=== PATIENT | female | born 1995 | race Caucasian/White ===

== ENCOUNTER 2018-12-09 17:28 | Outpatient (CLI) | payer MEDICAID ==
[~2018-12-09] VITALS: Ht 165.1 cm; Wt 99.8 kg
--- NOTE | 2018-12-09 17:10 | NUR ---
MIRYAM MATAMOROS presented to unit via AMBULTION from ED, accompanied by S/O, with c/o PRESSURE. MIRYAM MATAMOROS weighed, gowned, voided, and to bed. EFHM and TOCO applied, VS taken. MIRYAM MATAMOROS oriented to bed controls, call light, TV, heat, and A/C controls.
--- NOTE | 2018-12-09 17:20 | NUR ---
INITIAL ASSESSMENT COMPLETED, VSS, NO DISTRESS NOTED, PLAN OF CARE EXPLAINED WITH PT, PT VERBALIZES UNDERSTANDING. SEE INTERVENTIONS FOR DETAILED ASSESSMENT. PT REPORTS LOWER ABDOMINAL PRESSURE YESTERDAY WHICH HAS GOTTEN BETTER WITH TIME BUT STILL HERE. DENIES CONTRACTIONS, LEAKING FLUID, DECREASED MOVEMENT, BLEEDING OR RECENT INTERCOURSE.
[2018-12-09 18:03] LABS: BILIRUBIN,URINE NEGATIVE (NEGATIVE); COLOR,URINE YELLOW; GLUCOSE, URINE (UA) NEGATIVE (NEGATIVE); KETONES,URINE 3+ (NEGATIVE); LEUKOCYTE ESTERASE ,URINE 3+ (NEGATIVE); NITRITE,URINE NEGATIVE (NEGATIVE); PH,URINE 6 (5-9); PROTEIN,URINE 1+ (NEGATIVE); UROBILINOGEN,URINE NORMAL (NORMAL)
[2018-12-09] MEDS ORDERED: PREN1TAB79 PO (18:07)
[2018-12-09 18:08] LABS: CLARITY,URINE SL CLOUDY
[2018-12-09 18:09] LABS: BACTERIA,URINE MODERATE /HPF; RBC,URINE RARE /HPF
--- NOTE | 2018-12-09 18:50 | NUR ---
FHTS 130, MOD VARIABILITY, +ACCLS, +FM, X 1 CONTRACTION NOTED, 90 SECONDS IN DURATION, MILD TO PALPATION.
--- NOTE | 2018-12-09 19:00 | NUR ---
DR CONN CALLED, NEW ORDERS RECEIVED.
[2018-12-09] MEDS ORDERED: NITR-65 PO (19:08)
--- NOTE | 2018-12-09 19:30 | NUR ---
PRESCRIPTION CALLED TO [facility].
--- NOTE | 2018-12-09 19:32 | NUR ---
DISCHARGE INSTRUCTIONS EXPLAINED AND SIGNED BY PT, PT VERBALIZES UNDERSTANDING, DISCHARGED TO HOME, AMBULATED TO PRIVATE CAR WITH S/O AT SIDE.
== END 2018-12-09 19:32 | disposition home or self-care (01) ==
LOC: WSo 17:28 → LDRP 17:30 → WSo 19:32
PROVIDERS: ATTEND Family Medicine
DX: O99.89 Other specified diseases and conditions complicating pregnancy, childbirth and the puerperium (principal); R10.2 Pelvic and perineal pain; Z3A.32 32 weeks gestation of pregnancy
CPT/HCPCS: 81000; 87088; 99213

== ENCOUNTER 2019-01-10 13:05 | Inpatient (IN) | payer MEDICAID ==
[~2019-01-10] VITALS: Ht 165.1 cm; Wt 99.8 kg
[2019-01-10] VITALS (18 sets, daily range): BP systolic 117–136; BP diastolic 58–92
--- NOTE | 2019-01-10 13:00 | NUR ---
Arrived to unit for augmentation of labor. Sent from Dr Arce's office. Wt obtained and to room 318. Gowned and urine sample obtained. To bed and oriented to room, call light, surroundings and ordering process. monitors on. pt reports movement. plan of care reviewed with pt and family at bedside.
[~2019-01-10 13:05] MED LIST: NITR-65 PO; PREN1TAB79 PO
--- OUTSIDE RECORDS SUMMARY | 2019-01-10 13:08 | XMS REPORT | Continuity of Care Document ---
Demographics x Preferred Language Unknown Marital Status Unknown Confucianist Affiliation Unknown Race Unknown Ethnic Group Unknown Author Organization Unknown Address Unknown Allergies Active Description Code Type Severity Reaction Onset Reported/Identified Relationship to Patient Clinical Status Yes No Known Drug Allergies [id number] Drug Allergy Unknown N/A 12/09/2018 Medications There is no data. Problems Date Dx Coded Attending Type Code Diagnosis Diagnosed By 12/09/2018 SKY CONN MD, Ot O99.89 OT DISEASES AND CONDITIONS COMPL PREG/C 12/09/2018 SKY CONN MD Ot R10.2 PELVIC AND PERINEAL PAIN 12/09/2018 SKY CONN MD Ot Z3A.32 32 WEEKS GESTATION OF 12/11/2018 SKY CONN MD, Ot O99.89 OT DISEASES AND CONDITIONS COMPL PREG/C 12/11/2018 SKY CONN MD Ot R10.2 PELVIC AND PERINEAL PAIN 12/11/2018 SKY CONN MD Ot Z3A.32 32 WEEKS GESTATION OF Procedures There is no data. Results Test Result Range GLUCOSE ABDIEL 1 HOUR - 11/08/18 11:37 GLUCOSE, POSTPRANDIAL/ 1 HOUR 93 mg/dL See Note: CBC - 11/08/18 11:37 WHITE BLOOD CELL COUNT 9.9 Thousand/uL 3.8-10.8 RED BLOOD CELL COUNT 4.08 Million/uL 3.80-5.10 HEMOGLOBIN 11.4 g/dL 11.7-15.5 HEMATOCRIT 35.0 % 35.0-45.0 MCV 85.8 fL 80.0-100.0 MCH 27.9 pg 27.0-33.0 MCHC 32.6 g/dL 32.0-36.0 RDW 13.0 % 11.0-15.0 PLATELET COUNT 270 Thousand/uL 140-400 MPV 8.9 fL 7.5-12.5 ABSOLUTE NEUTROPHILS 7148 cells/uL 9569-6237 ABSOLUTE LYMPHOCYTES 2079 cells/uL 850-3900 ABSOLUTE MONOCYTES 584 cells/uL 200-950 ABSOLUTE EOSINOPHILS 59 cells/uL 15-500 ABSOLUTE BASOPHILS 30 cells/uL 0-200 NEUTROPHILS 72.2 % NRG LYMPHOCYTES 21.0 % NRG MONOCYTES 5.9 % NRG EOSINOPHILS 0.6 % NRG BASOPHILS 0.3 % NRG Complete urinalysis with reflex to culture - 12/09/18 17:35 Urine color determination YELLOW NRG Urine clarity determination SL CLOUDY NRG Urine pH measurement by test strip 6 5-9 Specific gravity of urine by test strip 1.020 1.016-1.022 Urine protein assay by test strip, semi-quantitative 1+ NEGATIVE Urine glucose detection by automated test strip NEGATIVE NEGATIVE Erythrocytes detection in urine sediment by light microscopy 1+ NEGATIVE Urine ketones detection by automated test strip 3+ NEGATIVE Urine nitrite detection by test strip NEGATIVE NEGATIVE Urine total bilirubin detection by test strip NEGATIVE NEGATIVE Urine urobilinogen measurement by automated test strip (mass/volume) NORMAL NORMAL Urine leukocyte esterase detection by dipstick 3+ NEGATIVE Automated urine sediment erythrocyte count by microscopy (number/high power field) RARE NRG Automated urine sediment leukocyte count by microscopy (number/high power field) [HPF] NRG Bacteria detection in urine sediment by light microscopy MODERATE NRG Squamous epithelial cells detection in urine sediment by light microscopy 5-10 NRG Crystals detection in urine sediment by light microscopy NONE NRG Casts detection in urine sediment by light microscopy NONE NRG Mucus detection in urine sediment by light microscopy MODERATE NRG Complete urinalysis with reflex to culture CULTURE PENDING NRG Bacterial urine culture - 12/09/18 17:35 Bacterial urine culture NG NRG CULTURE, GROUP B STREP WITH SUSCEPTIBILITY - 12/28/18 10:19 CULTURE, GROUP B STREP WITH SUSCEPTIBILITY SEE NOTE NRG Encounters ACCT No. Visit Date/Time Discharge Status Pt. Type Provider Facility Loc./Unit Complaint [id number] 01/03/2019 10:15:00 01/03/2019 23:59:59 [facility] [id number] 12/28/2018 09:30:00 Document Registration [id number] 11/08/2018 10:30:00 Document Registration [id number] 12/09/2018 17:28:00 12/09/2018 19:32:00 DIS Outpatient SKY CONN MD [facility] PRESSURE
[2019-01-10] MEDS ORDERED: D5 LR IV SOLUTION 1,000 ML IV SCH (13:13)
[2019-01-10] MEDS ORDERED: OXYTOCIN/NORMAL SALINE 500 ML IV SCH ×2 (13:13→20:09)
[2019-01-10 13:52] LABS: BASOPHILS % (AUTO) 0 % (0-10); EOSINOPHILS % (AUTO) 0 % (0-10); HEMATOCRIT 33 % (35-52); HEMOGLOBIN 10.7 G/DL (11.5-16.0); LYMPHOCYTES # (AUTO) 2.1 X 10^3 (1.0-4.0); LYMPHOCYTES % (AUTO) 22 % (12-44); MEAN CORPUSCULAR HEMOGLOBIN 26 PG (25-34); MEAN CORPUSCULAR HGB CONC 32 G/DL (32-36); MEAN CORPUSCULAR VOLUME 82 FL (80-99); MEAN PLATELET VOLUME 9.1 FL (7.4-10.4); MONOCYTES # (AUTO) 0.9 X 10^3 (0.0-1.0); MONOCYTES % (AUTO) 10 % (0-12); NEUTROPHILS # (AUTO) 6.5 X 10^3 (1.8-7.8); NEUTROPHILS % (AUTO) 69 % (42-75); PLATELET COUNT 270 10^3/uL (130-400); RED CELL DISTRIBUTION WIDTH 13.4 % (10.0-14.5); WHITE BLOOD COUNT 9.5 10^3/uL (4.3-11.0)
[2019-01-10] MEDS ORDERED: CATHETER FLUSH 10 ML SYR IV SCH ×2 (14:00→22:00)
--- NOTE | 2019-01-10 16:47 | History & Physical-OB ---
OB - Chief Complaint & HPI Date/Time Date of Admission: Date of Admission: Jan 10, 2019 at 13:05 Date seen by a Provider: Jan 10, 2019 Time Seen by a Provider: 16:45 Chief Complaint/History OB-Reason for Admission/Chief: Onset of Labor Hx : 2 Hx Para: 1 Expected Date of Delivery: Jan 30, 2019 Gestational Age in Weeks: 37 Gestational Age in Days: 1 Indication for induction: maternal discomfort Other reason for admission: advanced dilation Admission Nurse Assessment Rev: Yes Allergies and Home Medications Allergies Coded Allergies: No Known Drug Allergies (Unverified , 12/09/18) Home Medications Nitrofurantoin Monohyd/M-Cryst 100 Mg Capsule, 1 TAB PO BID Prescribed by: NORMA MORA on 12/09/18 190 Vit W-Ca,Fe,FA(<1 mg) 1 Each Tablet, 1 TAB PO DAILY, (Reported) Patient Home Medication List Home Medication List Reviewed: Yes OB - History Hx of Present Care: Yes Ultrasounds: Normal mid trimester US Obstetrical Complications: None Medical Complications: None Delivery History Adverse Rxn to Tranfusion: No Patient Past Medical History previously healthy Social History/Family History HIV/AIDS: No Sexually Transmitted Disease: No Alcohol Use: Denies Use Recreational Drug Use: No Immunizations Hepatitis A: Yes Hepatitis B: Yes OB - Admission Exam Physical Exam Vitals: Vital Signs 01/10/19 01/10/19 01/10/19 14:30 16:00 16:15 Temp 98.2 Pulse 101 Resp 18 B/P (MAP) 125/83 (97) Pulse Ox 99 O2 Delivery Room Air HEENT: NCAT Heart: Rhythm Normal Lungs: Clear Abdomen: Gravid Extremities: Normal Reflexes: Normal Cervical Dilatation: 5cm Effacement: 50% Station: -2 Membranes: Ruptured Amniotic Fluid: Clear Heart Rate: 130's Accelerations: Accelerations Present Decelerations: No Decelerations Short Term Variability: Present Penitentiary Variability: Average (6-25) Contractions on Admission: < 5 Minutes Apart Intensity: Moderate Labs Laboratory Tests Test 01/10/19 13:35 Range/Units White Blood Count 9.5 4.3-11.0 10^3/uL Red Blood Count 4.09 L 4.35-5.85 10^6/uL Hemoglobin 10.7 L 11.5-16.0 G/DL Hematocrit 33 L 35-52 % Mean Corpuscular Volume 82 80-99 FL Mean Corpuscular Hemoglobin 26 25-34 PG Mean Corpuscular Hemoglobin Concent 32 32-36 G/DL Red Cell Distribution Width 13.4 10.0-14.5 % Platelet Count 270 130-400 10^3/uL Mean Platelet Volume 9.1 7.4-10.4 FL Neutrophils (%) (Auto) 69 42-75 % Lymphocytes (%) (Auto) 22 12-44 % Monocytes (%) (Auto) 10 0-12 % Eosinophils (%) (Auto) 0 0-10 % Basophils (%) (Auto) 0 0-10 % Neutrophils # (Auto) 6.5 1.8-7.8 X 10^3 Lymphocytes # (Auto) 2.1 1.0-4.0 X 10^3 Monocytes # (Auto) 0.9 0.0-1.0 X 10^3 Eosinophils # (Auto) 0.0 0.0-0.3 10^3/uL Basophils # (Auto) 0.0 0.0-0.1 10^3/uL OB - Assessment/Plan/Diagnosis Assessment Assessment: active labor Admission Dx Normal labor at 37 1/7 wga. Admission Status: Inpatient Order (span 2 midnights) Reason for Inpatient Admission: Normal labor at 37 1/7 wga Plan Induction Method: AROM Other Plan augmentation with pitocin. CALE LAUREANO MD Jan 10, 2019 16:47
--- NOTE | 2019-01-10 17:51 | NUR ---
Report to Rosamaria Presley RN
--- NOTE | 2019-01-10 18:46 | OB Labor & Delivery Record ---
Vag Delivery Note Vag Delivery Note Date of Delivery: 01/10/19 Preoperative Diagnosis: Destiney Zaldivar is a (23 /Para 2 / 1,Gestational Age (wks)37with [] Postoperative Diagnosis: Same Surgeon: CALE LAUREANO Grinder Setup Operator: [] Anesthesia: [none] Delivery Type: [] Findings: [] Viable [male] , apgars [8/9] Lacerations: none Intact placenta with 3 vessel cord. Loose nuchal cord, no body cord or shoulder dystocia Estimated Blood Loss: [300] ml Complications: None Condition: Stable Description of Procedure: The patient is a 23 year old female who presented [in labor]. She was admitted and informed consent was obtained. Her labor course was remarkable for [augmentation] She progressed to complete dilatation and began to push. She was then set up for delivery. The infant's head was delivered atraumatically in the [OA] position. The shoulders and remainder of the 's body were then delivered without difficulty. Upon delivery, the head was held below the level of the perineum and the mouth and nares were bulb suctioned. The cord was doubly clamped and cut after 60 seconds and was placed on maternal abdomen. An intact placenta with 3-vessel cord delivered via Álvaro and there was found to be minimal bleeding.~ Vigorous fundal massage was performed and the fundus was found to be firm. IV oxytocin was given. Examination of the vagina and perineum revealed no lacerations. Following the repair, sponge, instrument and needle counts were correct. Mom and baby were both in stable condition in the labor suite. Vitals - Labs Vital Signs - I&O Vital Signs Date Time Temp Pulse Resp B/P (MAP) Pulse Ox O2 Delivery O2 Flow Rate FiO2 01/10/19 17:00 116 18 120/58 (78) Room Air 01/10/19 16:45 103 18 135/83 (100) Room Air 01/10/19 16:30 88 18 131/82 (98) Room Air 01/10/19 16:15 101 18 125/83 (97) Room Air 01/10/19 16:00 98.2 122 18 126/92 (103) Room Air 01/10/19 15:45 125 18 122/68 (86) Room Air 01/10/19 15:30 113 18 126/78 (94) Room Air 01/10/19 15:15 116 18 136/74 (94) Room Air 01/10/19 15:00 Room Air 01/10/19 14:45 98.1 Room Air 01/10/19 14:30 101 18 124/79 (94) 99 Room Air 01/10/19 14:15 105 18 126/79 (95) 99 Room Air 01/10/19 14:00 103 18 122/75 (91) 99 Room Air 01/10/19 13:45 93 18 124/71 (88) 98 Room Air Labs Laboratory Tests 01/10/19 13:35: White Blood Count 9.5, Red Blood Count 4.09L, Hemoglobin 10.7L, Hematocrit 33L, Mean Corpuscular Volume 82, Mean Corpuscular Hemoglobin 26, Mean Corpuscular Hemoglobin Concent 32, Red Cell Distribution Width 13.4, Platelet Count 270, Mean Platelet Volume 9.1, Neutrophils (%) (Auto) 69, Lymphocytes (%) (Auto) 22, Monocytes (%) (Auto) 10, Eosinophils (%) (Auto) 0, Basophils (%) (Auto) 0, Neutrophils # (Auto) 6.5, Lymphocytes # (Auto) 2.1, Monocytes # (Auto) 0.9, Eosinophils # (Auto) 0.0, Basophils # (Auto) 0.0 CALE LAUREANO MD Jan 10, 2019 18:46
[2019-01-10] MEDS ORDERED: BENZOCAINE/MENTHOL (DERMOPLAST) 56 ML CAN TP ONE (18:48)
[2019-01-10] MEDS ORDERED: IBUPROFEN 600 MG (MOTRIN) TAB PO ONE (20:04)
[2019-01-10] MEDS: IBUPROFEN 600 MG (MOTRIN) TAB PO SCH (20:11)
[2019-01-10] MEDS ORDERED: BENZOCAINE/MENTHOL (DERMOPLAST) 56 ML CAN TP PRN (20:15)
[2019-01-10] MEDS ORDERED: WITCH HAZEL(TUCKS) 40 EA JAR TOP PRN (20:15)
[2019-01-10] MEDS ORDERED: TETANUS,DIPTH,PERTUSS P/F (BOOSTRIX) 0.5 ML VIAL IM ONE (20:15)
[2019-01-10] MEDS ORDERED: MEASLES,MUMPS,RUBELLA 1 EA INJ SQ ONE (20:15)
[2019-01-10] MEDS ORDERED: IBUPROFEN 600 MG (MOTRIN) TAB PO SCH (21:00)
[2019-01-11 00:05] VITALS: BP 100/65
[2019-01-11] MEDS: IBUPROFEN 600 MG (MOTRIN) TAB PO SCH ×4 (02:22→21:17)
[2019-01-11 04:54] VITALS: BP 118/82
[2019-01-11] MEDS: ACETAMINOPHEN 500 MG TAB (TYLENOL) PO SCH ×2 (04:54→14:45)
[2019-01-11 05:58] LABS: BASOPHILS % (AUTO) 0 % (0-10); EOSINOPHILS % (AUTO) 0 % (0-10); HEMATOCRIT 30 % (35-52); HEMOGLOBIN 9.5 G/DL (11.5-16.0); LYMPHOCYTES # (AUTO) 2.5 X 10^3 (1.0-4.0); LYMPHOCYTES % (AUTO) 25 % (12-44); MEAN CORPUSCULAR HEMOGLOBIN 27 PG (25-34); MEAN CORPUSCULAR HGB CONC 32 G/DL (32-36); MEAN CORPUSCULAR VOLUME 83 FL (80-99); MEAN PLATELET VOLUME 8.9 FL (7.4-10.4); MONOCYTES # (AUTO) 0.9 X 10^3 (0.0-1.0); MONOCYTES % (AUTO) 9 % (0-12); NEUTROPHILS # (AUTO) 6.7 X 10^3 (1.8-7.8); NEUTROPHILS % (AUTO) 66 % (42-75); PLATELET COUNT 240 10^3/uL (130-400); RED CELL DISTRIBUTION WIDTH 13.6 % (10.0-14.5); WHITE BLOOD COUNT 10.2 10^3/uL (4.3-11.0)
--- NOTE | 2019-01-11 08:15 | NUR ---
THIS RN TO BEDSIDE, PT IN BED WITH S/O AND INFANT. VS OBTAINED. MEDS GIVEN; SEE EMAR FOR FURTHER. INITIAL SHIFT ASSESSMENT COMPLETED; SEE INTERVENTION. FRESH ICE WATER PROVIDED. BREAKFAST TRAY REMOVED. NO NEEDS VOICED, CALL LIGHT WITHIN REACH. Addendum: 01/11/19 at 0858 by ROSEMARY HAYS RN TIME SHOULD BE 0840.
[2019-01-11 08:37] VITALS: BP 109/62
[2019-01-11] MEDS: DOCUSATE SODIUM 100 MG (COLACE) CAP PO SCH ×2 (08:39→21:17)
--- NOTE | 2019-01-11 11:10 | NUR ---
PT IN BED, HOLDING SKIN TO SKIN. S/O AT THE BEDSIDE. NO NEEDS VOICED.
[2019-01-11 13:02] VITALS: BP 116/75
--- NOTE | 2019-01-11 13:02 | NUR ---
PT UP IN ROOM UPON ENTERING ROOM. PT TO BED. VS OBTAINED. S/O AT THE BEDSIDE. NO NEEDS VOICED.
--- NOTE | 2019-01-11 14:50 | NUR ---
THIS RN TO BEDSIDE, PT WITH ASSISTANCE FROM Khang CHASE, NURSERY RN. MEDS GIVEN PO; SEE EMAR FOR FURTHER. PT VOICES THAT SHE RECEIVED THE TDAP VACCINE IN THE CLINIC. NO NEEDS VOICED.
--- NOTE | 2019-01-11 16:17 | Postpartum Progress Note ---
Note Note Day # 1 Subjective: Patient is without complaints. Ambulating, voiding. Tolerating a regular diet without nausea or vomiting. Normal lochia. Pain is well controlled with oral pain medications. Breast feeding. Objective: Physical Exam: General - Alert and oriented, no apparent distress Abdomen - Soft, appropriately tender to palpation, non-distended, fundus firm at umbilicus Extremities - no edema, negative Toro's bilaterally Assessment: 23 yo G2 now P2 post- day # 1, status with delivery of term male Recovering well, hemodynamically stable Plan: Routine care. Encourage breast feeding. Encourage ambulation. Ferrous sulfate supplementation. f/u Dr Arce 6 weeks Plan for home tomorrow Vitals - Labs Vital Signs - I&O Vital Signs Date Time Temp Pulse Resp B/P (MAP) Pulse Ox O2 Delivery O2 Flow Rate FiO2 01/11/19 13:02 97.3 60 18 116/75 (89) 98 Room Air 01/11/19 08:37 97.7 82 18 109/62 (78) 98 Room Air 01/11/19 04:54 98.5 80 20 118/82 (94) 97 Room Air 01/11/19 00:05 98.8 83 20 100/65 (77) 98 Room Air 01/10/19 19:55 93 20 117/71 (86) Room Air 01/10/19 19:46 84 20 118/72 (87) Room Air 01/10/19 19:31 95 20 120/72 (88) Room Air 01/10/19 19:16 84 20 118/75 (89) Room Air 01/10/19 19:01 96 20 123/82 (96) Room Air 01/10/19 18:46 98.3 100 20 118/81 (93) Room Air 01/10/19 17:00 116 18 120/58 (78) Room Air 01/10/19 16:45 103 18 135/83 (100) Room Air 01/10/19 16:30 88 18 131/82 (98) Room Air 01/10/19 16:15 101 18 125/83 (97) Room Air I & O 01/11/19 07:00 Intake Total 1150 ml Balance 1150 ml Labs Laboratory Tests 01/11/19 05:47: White Blood Count 10.2, Red Blood Count 3.58L, Hemoglobin 9.5L, Hematocrit 30L, Mean Corpuscular Volume 83, Mean Corpuscular Hemoglobin 27, Mean Corpuscular Hemoglobin Concent 32, Red Cell Distribution Width 13.6, Platelet Count 240, Mean Platelet Volume 8.9, Neutrophils (%) (Auto) 66, Lymphocytes (%) (Auto) 25, Monocytes (%) (Auto) 9, Eosinophils (%) (Auto) 0, Basophils (%) (Auto) 0, Neutrophils # (Auto) 6.7, Lymphocytes # (Auto) 2.5, Monocytes # (Auto) 0.9, Eosinophils # (Auto) 0.0, Basophils # (Auto) 0.0 SKY CONN MD Jan 11, 2019 16:17
--- NOTE | 2019-01-11 17:33 | NUR ---
THIS RN TO BEDSIDE TO OBTAIN VS, PT . WILL RETURN AT A LATER TIME. NO NEEDS VOICED.
[2019-01-11 18:00] VITALS: BP 109/62
[2019-01-11 21:10] VITALS: BP 112/68
[2019-01-12] MEDS: ACETAMINOPHEN 500 MG TAB (TYLENOL) PO SCH ×2 (01:04→09:06)
[2019-01-12 03:07] VITALS: BP 115/62
[2019-01-12] MEDS: IBUPROFEN 600 MG (MOTRIN) TAB PO SCH ×2 (03:07→09:06)
--- NOTE | 2019-01-12 08:27 | Discharge Summary ---
Diagnosis/Chief Complaint Date of Admission Jan 10, 2019 at 13:05 Date of Discharge January 12, 2019 Admission Diagnosis Admission Diagnosis 1. Intrauterine at 37 weeks gestation 2. Low amniotic fluid index Discharge Diagnosis 1. Intrauterine at 37 weeks gestation 2. Low amniotic fluid index Chief Complaint/HPI Chief Complaint/HPI 23-year-old 2 now term 2 who initially it was admitted on January 10, 2019 after noting low NABILA. She received her care through Dr. Arce. She was brought in the morning of January 10 for induction of labor. Discharge Summary-OBS Procedures 1. Spontaneous vaginal delivery Discharge Physical Examination Allergies: Coded Allergies: No Known Drug Allergies (Unverified , 12/09/18) Vitals & I&Os Vital Sign - Last 12Hours Date Time Temp Pulse Resp B/P (MAP) Pulse Ox O2 Delivery O2 Flow Rate FiO2 01/12/19 03:07 98.4 68 18 115/62 (79) 98 Room Air General Appearance: No Acute Distress Cardiovascular: No Murmurs Abdominal: Soft (With uterus firm) Hospital Course Patient following delivery underwent routine care orders. She had no complications during the remainder of hospital stay. Her hemoglobin on January 11 was noted to be 9.5 with a comparison of 10.7 on admission. She was ambulatory and without any shortness of breath or leg pain. In the morning of January 12, 2019 she was eager for dismissal. She voiced no complaints and all questions answered. She will follow up with Dr. Arce in 6 weeks. Discharge Instructions to patient/family Please see electronic discharge instructions given to patient. Discharge Medications Reviewed and agree with Discharge Medication list on patient's Discharge Instruction sheet Clinical Quality Measures DVT/VTE Risk/Contraindication: Risk Factor Score Per Nursin RFS Level Per Nursing on Admit: 1=Low/No VTE PPX PAXTON VALVERDE MD Jan 12, 2019 08:27
--- NOTE | 2019-01-12 08:29 | Discharge Inst-Women's Service ---
Discharge Inst-Women's Serv Depart Medication/Instructions New, Converted or Re-Newed RX: Other Instructions You may take 200 mg ibuprofen 2 or 3 tablets every 6 hours as needed for cramping. Consults/Follow Up Additional Follow Up: Yes (With Dr. Arce in 6 weeks) Activity Driving Instructions: No Driving for 1 Week Nothing Inside Vagina: No [place] (For 6 weeks) Diet Discharge Diet: Regular Diet Return to The Hospital For: As below Symptoms to Report to : Bleeding Excessive, Fever Over 101 Degrees F, Vaginal Bleeding Increase, Vaginal Discharge Foul For Any Problems or Questions: Contact Your Physician PAXTON VALVERDE MD Jan 12, 2019 08:29
[2019-01-12 08:30] VITALS: BP 118/72
--- NOTE | 2019-01-12 08:30 | NUR ---
A.M. ASSESSMENT COMPLETED. VSS. ANXIOUS TO GO HOME TODAY.
[2019-01-12] MEDS: DOCUSATE SODIUM 100 MG (COLACE) CAP PO SCH (09:06)
--- NOTE | 2019-01-12 10:00 | NUR ---
CARING FOR INFANT IN ROOM. WELL.
--- NOTE | 2019-01-12 11:40 | NUR ---
DISCHARGE INSTRUCTIONS REVIEWED WITH COPY TO PT. STATES UNDERSTANDING OF ALL INSTRUCTIONS AND NEED TO F/U SCHEDULED AND NEEDED.
[2019-01-12 13:05] VITALS: BP 118/72
--- NOTE | 2019-01-12 13:05 | NUR ---
DISMISSED AMB WITH FROM [facility] IN STABLE CONDITION TO [facility] BY JORDON PEREZ.
== END 2019-01-12 13:05 | disposition home or self-care (01) | DRG 807 ==
LOC: LDRP 13:05
PROVIDERS: ADMIT Family Medicine; ATTEND Family Medicine
PROC: 10E0XZZ Delivery of Products of Conception, External Approach (ICD-10-PCS; principal; 2019-01-10)
DX: O41.03X0 Oligohydramnios, third trimester, not applicable or unspecified (principal); O69.81X0 Labor and delivery complicated by cord around neck, without compression, not applicable or unspecified; Z3A.37 37 weeks gestation of pregnancy; Z37.0 Single live birth
CPT/HCPCS: 36415; 85025; 86850; 86900; 86901

== ENCOUNTER → 2019-12-05 | Outpatient (CLI) | payer MEDICAID ==
[2019-12-05 11:14] LABS: BASOPHILS % (AUTO) 0 % (0-10); EOSINOPHILS % (AUTO) 0 % (0-10); HEMATOCRIT 39 % (35-52); HEMOGLOBIN 12.7 G/DL (11.5-16.0); LYMPHOCYTES % (AUTO) 28 % (12-44); MEAN CORPUSCULAR HEMOGLOBIN 27 PG (25-34); MEAN CORPUSCULAR HGB CONC 33 G/DL (32-36); MEAN CORPUSCULAR VOLUME 83 FL (80-99); MEAN PLATELET VOLUME 8.5 FL (7.4-10.4); MONOCYTES % (AUTO) 5 % (0-12); NEUTROPHILS % (AUTO) 66 % (42-75); PLATELET COUNT 277 10^3/uL (130-400); RED CELL DISTRIBUTION WIDTH 13.6 % (10.0-14.5)
[2019-12-05 11:15] LABS: LYMPHOCYTES # (AUTO) 1.9 X 10^3 (1.0-4.0); MONOCYTES # (AUTO) 0.4 X 10^3 (0.0-1.0); NEUTROPHILS # (AUTO) 4.7 X 10^3 (1.8-7.8)
== END ==
LOC: LAB FS 10:44
PROVIDERS: ATTEND Family Medicine
DX: Z34.81 Encounter for supervision of other normal pregnancy, first trimester (principal)
CPT/HCPCS: 36415; 80055; 86703; 87088

== ENCOUNTER → 2020-01-30 | Outpatient (CLI) | payer MEDICAID | LOC: LAB FS 11:32 | PROVIDERS: ATTEND Family Medicine | DX: Z34.90 Encounter for supervision of normal pregnancy, unspecified, unspecified trimester (principal); Z3A.00 Weeks of gestation of pregnancy not specified | CPT/HCPCS: 36415; 82105; 84702; 86336 ==

== ENCOUNTER → 2020-02-14 | Outpatient (CLI) | payer MEDICAID | LOC: LAB FS 15:02 | PROVIDERS: ATTEND Family Medicine | DX: N39.0 Urinary tract infection, site not specified (principal) | CPT/HCPCS: 87088 ==

== ENCOUNTER → 2020-04-16 | Outpatient (CLI) | payer MEDICAID ==
[2020-04-16 12:00] LABS: BASOPHILS % (AUTO) 0 % (0-10); EOSINOPHILS # (AUTO) 0.1 10^3/uL (0.0-0.3); EOSINOPHILS % (AUTO) 1 % (0-10); HEMATOCRIT 33 % (35-52); HEMOGLOBIN 10.7 G/DL (11.5-16.0); LYMPHOCYTES # (AUTO) 1.9 X 10^3 (1.0-4.0); LYMPHOCYTES % (AUTO) 24 % (12-44); MEAN CORPUSCULAR HEMOGLOBIN 28 PG (25-34); MEAN CORPUSCULAR HGB CONC 32 G/DL (32-36); MEAN CORPUSCULAR VOLUME 86 FL (80-99); MEAN PLATELET VOLUME 8.7 FL (7.4-10.4); MONOCYTES # (AUTO) 0.5 X 10^3 (0.0-1.0); MONOCYTES % (AUTO) 6 % (0-12); NEUTROPHILS # (AUTO) 5.5 X 10^3 (1.8-7.8); NEUTROPHILS % (AUTO) 69 % (42-75); PLATELET COUNT 298 10^3/uL (130-400)
== END ==
LOC: LAB FS 10:16
PROVIDERS: ATTEND Family Medicine
DX: Z34.90 Encounter for supervision of normal pregnancy, unspecified, unspecified trimester (principal)
CPT/HCPCS: 36415; 82950; 85025; 86780

== ENCOUNTER → 2020-05-14 | Outpatient (CLI) | payer MEDICAID | LOC: LABNPT 15:16 | PROVIDERS: ATTEND Family Medicine | DX: O26.899 Other specified pregnancy related conditions, unspecified trimester (principal) | CPT/HCPCS: 87088 ==

== ENCOUNTER 2020-06-14 00:16 | Observation (INO) | payer MEDICAID ==
[2020-06-14] VITALS (10 sets, daily range): BP systolic 110–135; BP diastolic 55–78
[~2020-06-14] VITALS: Ht 165.1 cm; Wt 95.0 kg
--- NOTE | 2020-06-14 00:20 | NUR ---
MIRYAM MATAMOROS presented to unit via ambulation from ED,with c/o CONTRACTIONS. MIRYAM MATAMOROS weighed, gowned, voided, and to bed. EFHM and TOCO applied, VS taken. MIRYAM MATAMOROS oriented to bed controls, call light, TV, heat, and A/C controls.
[2020-06-14] MEDS ORDERED: ACET325C7 PO (00:34)
[2020-06-14 00:36] LABS: BILIRUBIN,URINE NEGATIVE (NEGATIVE); CLARITY,URINE CLEAR; COLOR,URINE YELLOW; GLUCOSE, URINE (UA) NEGATIVE (NEGATIVE); KETONES,URINE 1+ (NEGATIVE); LEUKOCYTE ESTERASE ,URINE NEGATIVE (NEGATIVE); NITRITE,URINE NEGATIVE (NEGATIVE); PROTEIN,URINE NEGATIVE (NEGATIVE)
[2020-06-14 00:57] LABS: BACTERIA,URINE TRACE /HPF
--- NOTE | 2020-06-14 01:00 | NUR ---
DR MATTHEWS CALLED AND INFORMED OF PT ARRIVAL AND C/O'S. HISTORY, ASSESSMENT AND UA FINDINGS GIVEN. ORDERS RECEIVED.
[2020-06-14] MEDS ORDERED: D5 LR IV SOLUTION 1,000 ML IV ONE (01:04)
[2020-06-14] MEDS: D5 LR IV SOLUTION 1,000 ML IV SCH ×2 (01:47→05:39)
--- NOTE | 2020-06-14 02:20 | NUR ---
PT REPORTS IV HURTING AND FEELING LIKE IT IS PUFFING UP. NOTED UPON ASSESSMENT IV TO HAVE A KNOT AT INSERTION SITE AND TO BE RED. IVF STOPPED AND PT ALLOWED TO GET UP TO VOID.
--- NOTE | 2020-06-14 02:30 | NUR ---
PT RETURNED TO BED AND NOTED IV TUBING TO HAVE BLOOD BACKING UP INTO 7IN CLAVE. I BELIEVE IV IS STILL IN THE VEIN, BUT PT REQUESTS IT BE REMOVED AND RESTARTED DESPITE MULTIPLE ATTEMPTS TO OBTAIN PATENT IV THUS FAR.
--- NOTE | 2020-06-14 04:00 | NUR ---
PT ASSISTED TO LEFT SIDE FOR COMFORT.
--- NOTE | 2020-06-14 08:20 | NUR ---
Dr. Reyes here. Orders rec'd to collect GBS swab and check cervix. If no cervical change, pt may D/C to home.
--- NOTE | 2020-06-14 10:10 | NUR ---
Discharge instructions explained to pt with copy provided to pt. Pt verbalizes understanding of instructions and signs to verify. Denies questions or concerns at this time. Pt ambulates off unit to private vehicle with all personal belongings, accompanied by her mom. No s/s of distress noted. Addendum: 06/14/20 at 1234 by HOA FITZGERALD RN Time is error, event occurred at 1040.
--- NOTE | 2020-06-15 08:34 | Physician Query-Final Dx ---
ANDREAS PACE 06/15/20 0834: Clinic Account Progress/Dx Physician Query: Please give diagnosis Please include # weeks gestation Date of Service Jun 14, 2020 at 00:16 WINIFRED MATTHEWS DO 06/15/20 1018: Clinic Account Progress/Dx DIAGNOSIS: Diagnosis 34 week IUP Irregular contractions ANDREAS PACE Jun 15, 2020 08:34 WINIFRED MATTHEWS DO Jun 15, 2020 10:18
== END 2020-06-14 10:40 | disposition home or self-care (01) ==
LOC: WSo 00:16 → LDRP 00:23 → WSo 01:00 → LDRP 01:00 → INTOOBSV 01:00
PROVIDERS: ADMIT Obstetrics & Gynecology; ATTEND Obstetrics & Gynecology
DX: O62.8 Other abnormalities of forces of labor (principal); Z3A.34 34 weeks gestation of pregnancy
CPT/HCPCS: 81000; 87081; 96360; 96361; G0378; G0379; 99211

== ENCOUNTER 2020-06-16 14:11 | Emergency (ER) | payer MEDICAID ==
[~2020-06-16] VITALS: Ht 165.1 cm; Wt 94.5 kg
[~2020-06-16 14:11] MED LIST changes: +ACET325C7 PO
[2020-06-16] MEDS ORDERED: NS IV 1000 ML 1,000 ML IV SCH (14:49)
--- NOTE | 2020-06-16 14:49 | ED General ---
General Stated Complaint: HIGH HR 35 WEEKS History of Present Illness Date Seen by Provider: Jun 16, 2020 Time Seen by Provider: 14:46 Initial Comments 24-year-old female approximately 35 weeks . Patient here due to a high heart rate and a little bit" chest discomfort when her heart rate goes fast" patient has a little bit of tenderness if you press on her chest wall. Patient with seen 2 days ago and OB floor Overnight given IV fluids with concerns of some mild dehydration and tachycardia. Patient does not have any current chest pain, does state it comes and goes. She's not have any shortness of breath. No fevers chills nausea or vomiting. Allergies and Home Medications Allergies Coded Allergies: No Known Drug Allergies (Unverified , 06/14/20) Home Medications Acetaminophen 325 Mg Capsule, 1,000 MG PO NEEDED, (Reported) Patient Home Medication List Home Medication List Reviewed: Yes Review of Systems Review of Systems Constitutional: No chills, No fever Respiratory: No cough, No short of breath Cardiovascular: see HPI, palpitations Gastrointestinal: no symptoms reported Genitourinary: see HPI : Yes Musculoskeletal: no symptoms reported Skin: no symptoms reported Psychiatric/Neurological: No Symptoms Reported Hematologic/Lymphatic: No Symptoms Reported Past [place]-Zurxpl-Puiour Hx Past Med/Social Hx: Reviewed Nursing Past Med/Soc Hx Patient Social History 2nd Hand Smoke Exposure: No Recent Foreign Travel: No Contact w/Someone Who Travel: No Recent Hopitalizations: No Immunizations Up To Date PED Vaccines UTD: Yes Date of Influenza Vaccine: May 14, 2020 Seasonal Allergies Seasonal Allergies: No Past Medical History Surgeries: Yes (reconstructive jaw surgery/tonsillectomy) Respiratory: No Cardiac: No Neurological: No Female Reproductive Disorders: Ovarian Cyst Sexually Transmitted Disease: No HIV/AIDS: No Gastrointestinal: No Musculoskeletal: No HEENT: No Cancer: No Psychosocial: Yes Anxiety, Depression Integumentary: No Blood Disorders: No Adverse Reaction/Blood Tranf: No Family Medical History Asthma G8 SISTER Degenerative disc disease 19 MOTHER Hypertension G8 BROTHER Physical Exam Vital Signs Vital Signs - First Documented 06/16/20 14:41 Temp 36.3 Pulse 91 Resp 18 B/P (MAP) 131/80 (97) Capillary Refill : Height, Weight, BMI Height: 5'5.00" Weight: 220lbs. 0.4oz. [id number]; 34.85 BMI Method: General Appearance: No Apparent Distress, WD/WN Neck: Non Tender, Supple Respiratory: Lungs Clear, Normal Breath Sounds, Other (mild tender to palpation, chest wall ) Cardiovascular: Regular Rate, Rhythm, No Edema, Normal Peripheral Pulses Progress/Results/Core Measures Suspected Sepsis SIRS Temperature: Pulse: Respiratory Rate: Laboratory Tests 06/16/20 14:55: White Blood Count 9.3 Blood Pressure / Mean: Laboratory Tests 06/16/20 14:55: Creatinine 0.66, Platelet Count 276, Total Bilirubin 0.4 Results/Orders Lab Results Laboratory Tests Test 06/16/20 14:55 06/16/20 15:54 Range/Units White Blood Count 9.3 4.3-11.0 10^3/uL Red Blood Count 4.08 3.80-5.11 10^6/uL Hemoglobin 10.3 L 11.5-16.0 g/dL Hematocrit 34 L 35-52 % Mean Corpuscular Volume 82 80-99 fL Mean Corpuscular Hemoglobin 25 25-34 pg Mean Corpuscular Hemoglobin Concent 31 L 32-36 g/dL Red Cell Distribution Width 12.8 10.0-14.5 % Platelet Count 276 130-400 10^3/uL Mean Platelet Volume 9.0 9.0-12.2 fL Immature Granulocyte % (Auto) 1 % Neutrophils (%) (Auto) 70 42-75 % Lymphocytes (%) (Auto) 23 12-44 % Monocytes (%) (Auto) 6 0-12 % Eosinophils (%) (Auto) 0 0-10 % Basophils (%) (Auto) 0 0-10 % Neutrophils # (Auto) 6.5 1.8-7.8 10^3/uL Lymphocytes # (Auto) 2.2 1.0-4.0 10^3/uL Monocytes # (Auto) 0.6 0.0-1.0 10^3/uL Eosinophils # (Auto) 0.0 0.0-0.3 10^3/uL Basophils # (Auto) 0.0 0.0-0.1 10^3/uL Immature Granulocyte # (Auto) 0.1 0.0-0.1 10^3/uL Sodium Level 136 135-145 MMOL/L Potassium Level 3.5 L 3.6-5.0 MMOL/L Chloride Level 102 98-107 MMOL/L Carbon Dioxide Level 23 21-32 MMOL/L Anion Gap 11 5-14 MMOL/L Blood Urea Nitrogen 6 L 7-18 MG/DL Creatinine 0.66 0.60-1.30 MG/DL Estimat Glomerular Filtration Rate > 60 BUN/Creatinine Ratio 9 Glucose Level 97 70-105 MG/DL Calcium Level 8.6 8.5-10.1 MG/DL Corrected Calcium 9.0 8.5-10.1 MG/DL Total Bilirubin 0.4 0.1-1.0 MG/DL Aspartate Amino Transf (AST/SGOT) 16 5-34 U/L Alanine Aminotransferase (ALT/SGPT) 13 0-55 U/L Alkaline Phosphatase 153 H 40-136 U/L Troponin I < 0.028 <0.028 NG/ML Total Protein 7.1 6.4-8.2 GM/DL Albumin 3.5 3.2-4.5 GM/DL Urine Color YELLOW Urine Clarity CLEAR Urine pH 6.5 5-9 Urine Specific [place] <=1.005 1.016-1.022 Urine Protein NEGATIVE NEGATIVE Urine Glucose (UA) NEGATIVE NEGATIVE Urine Ketones NEGATIVE NEGATIVE Urine Nitrite NEGATIVE NEGATIVE Urine Bilirubin NEGATIVE NEGATIVE Urine Urobilinogen 0.2 < = 1.0 MG/DL Urine Leukocyte Esterase 3+ H NEGATIVE Urine RBC (Auto) TRACE-I NEGATIVE Urine RBC 0-2 /HPF Urine WBC 10-25 H /HPF Urine Crystals NONE /LPF Urine Bacteria MODERATE H /HPF Urine Casts NONE /LPF Urine Mucus NEGATIVE /LPF Urine Culture Indicated YES My Orders Orders - REN,FABRICIO L DO Ed Iv/Invasive Line Start (06/16/20 14:49) Ekg Tracing (06/16/20 14:49) Heart Tones (06/16/20 14:49) Cbc With Automated Diff (06/16/20 14:49) Comprehensive Metabolic Panel (06/16/20 14:49) Troponin I (06/16/20 14:49) Ua Culture If Indicated (06/16/20 14:49) Ed Iv/Invasive Line Start (06/16/20 14:49) Ns Iv 1000 Ml (Sodium Chloride 0.9%) (06/16/20 14:49) Urine Culture (06/16/20 15:54) Vital Signs/I&O 06/16/20 14:41 Temp 36.3 Pulse 91 Resp 18 B/P (MAP) 131/80 (97) Capillary Refill : ECG Initial ECG Impression Date: Jun 16, 2020 Initial ECG Impression Time: 15:05 Initial ECG Rhythm: Normal Sinus Initial ECG Intervals: Normal Initial ECG Impression: Normal Departure Impression Primary Impression: Urinary tract infection Qualified Codes: N30.00 - Acute cystitis without hematuria Additional Impression: 35 weeks gestation of Disposition: HOME, SELF-CARE Condition: Stable Departure-Patient Inst. Referrals: NO,LOCAL PHYSICIAN (PCP/Family) Primary Care Physician Patient Instructions: Urinary Tract Infection, Adult (DC) Add. Discharge Instructions: Follow-up with your nursing home assistant administrator in 2-3 days for recheck in today symptoms so kim if needed Scripts Cephalexin (Cephalexin) 500 Mg Tablet 500 MG PO QID, #20 TAB 0 Refills Prov: FABRICIO REN DO 06/16/20 FABIRCIO REN DO Jun 16, 2020 14:49
[2020-06-16 15:10] LABS: BASOPHILS % (AUTO) 0 % (0-10); EOSINOPHILS % (AUTO) 0 % (0-10); HEMATOCRIT 34 % (35-52); HEMOGLOBIN 10.3 g/dL (11.5-16.0); LYMPHOCYTES # (AUTO) 2.2 10^3/uL (1.0-4.0); LYMPHOCYTES % (AUTO) 23 % (12-44); MEAN CORPUSCULAR HEMOGLOBIN 25 pg (25-34); MEAN CORPUSCULAR HGB CONC 31 g/dL (32-36); MEAN CORPUSCULAR VOLUME 82 fL (80-99); MONOCYTES # (AUTO) 0.6 10^3/uL (0.0-1.0); MONOCYTES % (AUTO) 6 % (0-12); NEUTROPHILS # (AUTO) 6.5 10^3/uL (1.8-7.8); NEUTROPHILS % (AUTO) 70 % (42-75); PLATELET COUNT 276 10^3/uL (130-400); WHITE BLOOD COUNT 9.3 10^3/uL (4.3-11.0)
[2020-06-16 15:15] LABS: ALBUMIN 3.5 GM/DL (3.2-4.5); CHLORIDE 102 MMOL/L (98-107); POTASSIUM 3.5 MMOL/L (3.6-5.0); SODIUM 136 MMOL/L (135-145)
[2020-06-16 15:16] LABS: CALCIUM 8.6 MG/DL (8.5-10.1)
[2020-06-16 15:17] LABS: GLUCOSE 97 MG/DL (70-105); TOTAL PROTEIN 7.1 GM/DL (6.4-8.2)
[2020-06-16 15:18] LABS: CARBON DIOXIDE 23 MMOL/L (21-32)
[2020-06-16 15:19] LABS: BILIRUBIN,TOTAL 0.4 MG/DL (0.1-1.0)
[2020-06-16 15:21] LABS: ALKALINE PHOSPHATASE 153 U/L (40-136); CREATININE SERUM 0.66 MG/DL (0.60-1.30); GFR ESTIMATED > 60
[2020-06-16 15:22] LABS: BUN/CREATININE RATIO 9
[2020-06-16 15:24] LABS: ALANINE AMINOTRANSFERASE 13 U/L (0-55)
--- NOTE | 2020-06-16 16:05 | NUR ---
TO ROOM FLUIDS CON'T TO INFUSE.
[2020-06-16 16:07] LABS: BILIRUBIN,URINE NEGATIVE (NEGATIVE); CLARITY,URINE CLEAR; COLOR,URINE YELLOW; GLUCOSE, URINE (UA) NEGATIVE (NEGATIVE); KETONES,URINE NEGATIVE (NEGATIVE); LEUKOCYTE ESTERASE ,URINE 3+ (NEGATIVE); NITRITE,URINE NEGATIVE (NEGATIVE); PH,URINE 6.5 (5-9); PROTEIN,URINE NEGATIVE (NEGATIVE)
[2020-06-16 16:37] LABS: BACTERIA,URINE MODERATE /HPF; RBC,URINE 0-2 /HPF
[2020-06-16] MEDS ORDERED: CEPH500T PO (16:55)
[2020-06-16 17:10] VITALS: BP 125/76
== END 2020-06-16 17:10 | disposition home or self-care (01) ==
LOC: EDUNIT# 14:11 → ER 14:15
DX: O26.893 Other specified pregnancy related conditions, third trimester (principal); N39.0 Urinary tract infection, site not specified; Z82.49 Family history of ischemic heart disease and other diseases of the circulatory system; Z3A.35 35 weeks gestation of pregnancy
CPT/HCPCS: 36415; 80053; 81000; 84484; 85025; 87077; 87088

== ENCOUNTER 2020-07-03 19:14 | Inpatient (IN) | payer MEDICAID ==
[~2020-07-03] VITALS: Ht 165.1 cm; Wt 95.5 kg
[2020-07-03] VITALS (18 sets, daily range): BP systolic 113–140; BP diastolic 58–89
--- NOTE | 2020-07-03 19:10 | NUR ---
MIRYAM MATAMOROS presented to unit via wc from ED, accompanied by BLANCA correa and adult male, with c/o LABOR. MIRYAM MATAMOROS weighed, gowned, voided, and to bed. EFHM and TOCO applied, VS taken. MIRYAM MATAMOROS oriented to bed controls, call light, TV, heat, and A/C controls. above and further assessments carried out per this rn.
[~2020-07-03 19:14] MED LIST changes: +CEPH500T PO
[2020-07-03] MEDS ORDERED: AMPICILLIN 2,000 MG/14.8 ML (IV USE) ONE (19:22)
[2020-07-03] MEDS ORDERED: D5 LR IV SOLUTION 1,000 ML IV ONE (19:22)
[2020-07-03] MEDS ORDERED: WATER (STERILE) FOR INJECTION 20 ML ONE (19:22)
[2020-07-03] MEDS ORDERED: AMPICILLIN FOR IV USE 2,000 MG in WATER (STERILE) FOR INJECTION 14.8 ML IV SCH (19:43)
[2020-07-03] MEDS ORDERED: MINERAL OIL CONCENTRATE 99.9% 15 ML UDC TOP PRN (19:45)
[2020-07-03] MEDS ORDERED: D5 LR IV SOLUTION 1,000 ML IV SCH (19:45)
[2020-07-03] MEDS ORDERED: LIDOCAINE/EPI 2% 1:200,00 (XYLOCAINE) 10 ML VIAL ONE ×2 (19:57)
[2020-07-03] MEDS ORDERED: OXYTOCIN PRE-MIX DRIP 1,000 ML IV ONE (19:57)
[2020-07-03] MEDS ORDERED: fentaNYL 2 mcg/ml BUPIVA 0.125 100 ML ONE (20:03)
[2020-07-03 20:07] LABS: BASOPHILS % (AUTO) 0 % (0-10); EOSINOPHILS # (AUTO) 0.1 10^3/uL (0.0-0.3); EOSINOPHILS % (AUTO) 1 % (0-10); HEMATOCRIT 32 % (35-52); HEMOGLOBIN 10.1 g/dL (11.5-16.0); LYMPHOCYTES # (AUTO) 2.7 10^3/uL (1.0-4.0); LYMPHOCYTES % (AUTO) 22 % (12-44); MEAN CORPUSCULAR HEMOGLOBIN 25 pg (25-34); MEAN CORPUSCULAR HGB CONC 32 g/dL (32-36); MEAN CORPUSCULAR VOLUME 79 fL (80-99); MEAN PLATELET VOLUME 8.8 fL (9.0-12.2); MONOCYTES # (AUTO) 0.8 10^3/uL (0.0-1.0); MONOCYTES % (AUTO) 7 % (0-12); NEUTROPHILS # (AUTO) 8.8 10^3/uL (1.8-7.8); NEUTROPHILS % (AUTO) 70 % (42-75); PLATELET COUNT 257 10^3/uL (130-400); WHITE BLOOD COUNT 12.5 10^3/uL (4.3-11.0)
--- NOTE | 2020-07-03 20:23 | History & Physical-OB ---
OB - Chief Complaint & HPI Date/Time Date of Admission: Date of Admission: Date seen by a Provider: Jul 03, 2020 Time Seen by a Provider: 20:21 Chief Complaint/History OB-Reason for Admission/Chief: Onset of Labor Hx : 3 Hx Para: 2 Gestational Age in Weeks: 37 Gestational Age in Days: 3 Admission Nurse Assessment Rev: Yes Allergies and Home Medications Allergies Coded Allergies: No Known Drug Allergies (Unverified , 06/14/20) Home Medications Acetaminophen 325 Mg Capsule, 1,000 MG PO NEEDED, (Reported) Cephalexin 500 Mg Tablet, 500 MG PO QID Prescribed by: FABRICIO REN on 06/16/20 [id number] Patient Home Medication List Home Medication List Reviewed: Yes OB - History Hx of Present Care: Yes Ultrasounds: Normal mid trimester US Obstetrical Complications: None Medical Complications: None Delivery History Adverse Rxn to Tranfusion: No Patient Past Medical History previously healthy Social History/Family History HIV/AIDS: No Sexually Transmitted Disease: No 2nd Hand Smoke Exposure: No Immunizations Hepatitis A: Yes Hepatitis B: Yes Date of Influenza Vaccine: May 14, 2020 OB - Admission Exam Physical Exam HEENT: NCAT Heart: Rhythm Normal Lungs: Clear Abdomen: Gravid Extremities: Normal Reflexes: Normal Cervical Dilatation: 7cm Effacement: 100% Station: -1 Membranes: Intact Heart Rate: 130's Accelerations: Accelerations Present Decelerations: No Decelerations Short Term Variability: Present Hospitality Ambassador Variability: Average (6-25) Contractions on Admission: < 5 Minutes Apart Labs Laboratory Tests Test 07/03/20 19:54 Range/Units White Blood Count 12.5 H 4.3-11.0 10^3/uL Red Blood Count 4.03 3.80-5.11 10^6/uL Hemoglobin 10.1 L 11.5-16.0 g/dL Hematocrit 32 L 35-52 % Mean Corpuscular Volume 79 L 80-99 fL Mean Corpuscular Hemoglobin 25 25-34 pg Mean Corpuscular Hemoglobin Concent 32 32-36 g/dL Red Cell Distribution Width 13.6 10.0-14.5 % Platelet Count 257 130-400 10^3/uL Mean Platelet Volume 8.8 L 9.0-12.2 fL Immature Granulocyte % (Auto) 0 % Neutrophils (%) (Auto) 70 42-75 % Lymphocytes (%) (Auto) 22 12-44 % Monocytes (%) (Auto) 7 0-12 % Eosinophils (%) (Auto) 1 0-10 % Basophils (%) (Auto) 0 0-10 % Neutrophils # (Auto) 8.8 H 1.8-7.8 10^3/uL Lymphocytes # (Auto) 2.7 1.0-4.0 10^3/uL Monocytes # (Auto) 0.8 0.0-1.0 10^3/uL Eosinophils # (Auto) 0.1 0.0-0.3 10^3/uL Basophils # (Auto) 0.0 0.0-0.1 10^3/uL Immature Granulocyte # (Auto) 0.0 0.0-0.1 10^3/uL OB - Assessment/Plan/Diagnosis Assessment Assessment: active labor Admission Dx Active labor at 37 3/7 wga. GBS positive. Admission Status: Inpatient Order (span 2 midnights) Reason for Inpatient Admission: Labor Plan Plan: Expectant Management Other Plan Epidural for pain. Ampicillin started. Expectant management. CALE LAUREANO MD Jul 03, 2020 20:23
[2020-07-03] MEDS ORDERED: WITCH HAZEL(TUCKS) 40 EA JAR TOP PRN (20:30)
[2020-07-03] MEDS ORDERED: BENZOCAINE/MENTHOL (DERMOPLAST) 60 ML CAN TP PRN (20:30)
[2020-07-03] MEDS ORDERED: TETANUS,DIPTH,PERTUSS P/F (BOOSTRIX) 0.5 ML VIAL IM ONE (20:30)
[2020-07-03] MEDS ORDERED: MEASLES,MUMPS,RUBELLA 1 EA INJ SQ ONE (20:30)
[2020-07-03] MEDS ORDERED: fentaNYL INJECTION 100 MCG/2 ML AMP ONE (20:40)
[2020-07-03] MEDS ORDERED: PREN-8 PO (21:23)
[2020-07-03] MEDS ORDERED: ACETAMINOPHEN 500 MG TAB (TYLENOL) PO SCH (22:00)
[2020-07-03] MEDS ORDERED: CATHETER FLUSH 10 ML SYR IV SCH ×2 (22:00)
[2020-07-03] MEDS ORDERED: EPIDURAL (fentaNYL 2 MCG/ML BUPIVA 0.125%)100 ML BAG EPI PRN (22:30)
[2020-07-03] MEDS ORDERED: METOCLOPRAMIDE INJ 10 MG/2 ML (REGLAN) IV PRN (22:30)
[2020-07-03] MEDS ORDERED: LACTATED RINGERS 1,000 ML IV SCH (22:30)
[2020-07-03] MEDS ORDERED: diphenhydrAMINE 50 MG/ML INJ (BENADRYL) IV PRN (22:30)
[2020-07-03] MEDS ORDERED: ONDANSETRON 4 MG/2 ML (SDV) Z0FRAN IV PRN (22:30)
[2020-07-03] MEDS ORDERED: NALOXONE 0.4 MG/ML 1 ML (NARCAN) VIAL IV PRN ×2 (22:30)
[2020-07-03] MEDS ORDERED: AMPICILLIN FOR IV USE 1,000 MG in WATER (STERILE) FOR INJECTION 7.4 ML IV SCH (23:45)
[2020-07-04] VITALS (13 sets, daily range): BP systolic 112–132; BP diastolic 58–80
[2020-07-04] MEDS: OXYTOCIN PRE-MIX DRIP 500 ML IV SCH ×2 (00:30→01:00)
--- NOTE | 2020-07-04 01:58 | NUR ---
At no time was the pts respiratory rate 58. Error in black puller charting, respiratory rate 18 per minute throughout.
[2020-07-04] MEDS: IBUPROFEN 600 MG (MOTRIN) TAB PO SCH ×4 (03:40→20:13)
--- NOTE | 2020-07-04 04:30 | NUR ---
Epidural cath removed, tip in tact, site wnl, left o/a. Pt up standby to bathroom, pericare pads and gown changed, first void noted, pt to wc, transferred to pp unit room 311, oriented to call system and surroundings, this rn remains primary rn for pt. will cont to monitor.
[2020-07-04 06:57] LABS: BASOPHILS % (AUTO) 0 % (0-10); EOSINOPHILS # (AUTO) 0.1 10^3/uL (0.0-0.3); EOSINOPHILS % (AUTO) 0 % (0-10); HEMATOCRIT 26 % (35-52); HEMOGLOBIN 7.8 g/dL (11.5-16.0); LYMPHOCYTES % (AUTO) 15 % (12-44); MEAN CORPUSCULAR HEMOGLOBIN 25 pg (25-34); MEAN CORPUSCULAR HGB CONC 31 g/dL (32-36); MEAN CORPUSCULAR VOLUME 82 fL (80-99); MEAN PLATELET VOLUME 9.2 fL (9.0-12.2); MONOCYTES # (AUTO) 1.1 10^3/uL (0.0-1.0); MONOCYTES % (AUTO) 9 % (0-12); NEUTROPHILS # (AUTO) 9.8 10^3/uL (1.8-7.8); NEUTROPHILS % (AUTO) 75 % (42-75); PLATELET COUNT 200 10^3/uL (130-400)
--- NOTE | 2020-07-04 09:05 | NUR ---
AM shift assessment completed and vital signs obtained, see interventions. Scheduled Motrin and Colace PO given. Plan of care reviewed with patient. Patient verbalizes understanding and questions answered. Shower supplies provided to patient.
[2020-07-04] MEDS: DOCUSATE SODIUM 100 MG (COLACE) CAP PO SCH ×2 (09:07→20:13)
--- NOTE | 2020-07-04 11:48 | OB Labor & Delivery Record ---
Vag Delivery Note Vag Delivery Note Date of Delivery: 07/04/20 Preoperative Diagnosis: Destiney Zaldivar is a (24 /Para 3 / 2,Gestational Age (wks)37with [4 days] Postoperative Diagnosis: Same Surgeon: CALE LAUREANO Learning Coordinator: [none] Anesthesia: [epidural] Delivery Type: [] Findings: [] Viable [female] infant Lacerations: Intact placenta with 3 vessel cord. No lacerations. Estimated Blood Loss: [400] ml Complications: None Condition: Stable Description of Procedure: The patient is a 24 year old female who presented [in labor]. She was admitted and informed consent was obtained. Her labor course was remarkable for [persistent OP face presentation] She progressed to complete dilatation and began to push. She was then set up for delivery. The 's head was delivered atraumatically in the [OP] position. The shoulders and remainder of the infant's body were then delivered without difficulty. Upon delivery, the head was held below the level of the perineum and the mouth and nares were bulb suctioned. The cord was doubly clamped and cut after 60 seconds on maternal abdomen by father of the baby. An intact placenta with 3-vessel cord delivered via Álvaro and there was found to be minimal bleeding.~ Vigorous fundal massage was performed and the fundus was found to be firmafter some moderate blood loss. IV oxytocin was given. Examination of the vagina and perineum revealed no lacerations. Following the repair, sponge, instrument and needle counts were correct. Mom and baby were both in stable condition in the labor suite. Vitals - Labs Vital Signs - I&O Vital Signs Date Time Temp Pulse Resp B/P (MAP) Pulse Ox O2 Delivery O2 Flow Rate FiO2 07/04/20 09:05 36.4 84 16 119/68 (85) 99 Room Air 07/04/20 04:00 36.8 85 18 122/58 (79) Room Air 07/04/20 03:15 88 18 117/58 (77) Room Air 07/04/20 02:45 100 18 112/61 (78) Room Air 07/04/20 02:15 92 18 114/68 (83) Room Air 07/04/20 01:45 37.0 94 18 119/65 (83) Room Air 07/04/20 01:30 37.1 105 18 114/61 (78) Room Air 07/04/20 01:15 36.8 90 18 113/65 (81) Room Air 07/04/20 01:00 37.0 98 18 123/64 (83) Room Air 07/04/20 00:45 36.8 112 18 127/63 (84) Room Air 07/04/20 00:33 18 100 Room Air 07/04/20 00:25 18 100 Room Air 07/04/20 00:15 18 100 Room Air 07/04/20 00:00 108 58 132/77 (95) 100 Room Air 07/03/20 23:45 113 58 140/75 (96) 100 Room Air 07/03/20 23:30 101 58 134/84 (101) 100 Room Air 07/03/20 23:15 96 58 133/67 (89) 100 Room Air 07/03/20 23:00 110 58 136/72 (93) 100 Room Air 07/03/20 22:45 115 58 114/67 (83) 99 Room Air 07/03/20 22:30 113 58 139/89 (106) 100 Room Air 07/03/20 22:15 92 58 136/83 (100) 100 Room Air 07/03/20 22:00 115 58 124/77 (93) 100 Room Air 07/03/20 21:45 95 58 127/76 (93) 100 Room Air 07/03/20 21:30 96 58 129/77 (94) 100 Room Air 07/03/20 21:25 101 18 124/78 (93) 100 Room Air 07/03/20 21:20 96 18 113/68 (83) 100 Room Air 07/03/20 21:15 98 58 123/72 (89) 98 Room Air 07/03/20 21:12 100 18 118/70 (86) 100 Room Air 07/03/20 21:09 97 18 124/76 (92) 100 Room Air 07/03/20 21:06 103 18 121/74 (90) 100 Room Air 07/03/20 21:03 103 18 129/79 (96) 100 Room Air 07/03/20 21:00 121 58 130/58 (82) 100 Room Air 07/03/20 20:00 37.2 105 18 100 Room Air I & O 07/04/20 07:00 Intake Total 1037.0 ml Balance 1037.0 ml Labs Laboratory Tests 07/03/20 19:54: White Blood Count 12.5H, Red Blood Count 4.03, Hemoglobin 10.1L, Hematocrit 32L, Mean Corpuscular Volume 79L, Mean Corpuscular Hemoglobin 25, Mean Corpuscular Hemoglobin Concent 32, Red Cell Distribution Width 13.6, Platelet Count 257, Mean Platelet Volume 8.8L, Immature Granulocyte % (Auto) 0, Neutrophils (%) (Auto) 70, Lymphocytes (%) (Auto) 22, Monocytes (%) (Auto) 7, Eosinophils (%) (Auto) 1, Basophils (%) (Auto) 0, Neutrophils # (Auto) 8.8H, Lymphocytes # (Auto) 2.7, Monocytes # (Auto) 0.8, Eosinophils # (Auto) 0.1, Basophils # (Auto) 0.0, Immature Granulocyte # (Auto) 0.0 07/04/20 06:42: White Blood Count 13.0H, Red Blood Count 3.10L, Hemoglobin 7.8#L, Hematocrit 26L , Mean Corpuscular Volume 82, Mean Corpuscular Hemoglobin 25, Mean Corpuscular Hemoglobin Concent 31L, Red Cell Distribution Width 13.9, Platelet Count 200, Mean Platelet Volume 9.2, Immature Granulocyte % (Auto) 1, Neutrophils (%) (Auto) 75, Lymphocytes (%) (Auto) 15, Monocytes (%) (Auto) 9, Eosinophils (%) (Auto) 0, Basophils (%) (Auto) 0, Neutrophils # (Auto) 9.8H, Lymphocytes # (Auto) 2.0, Monocytes # (Auto) 1.1H, Eosinophils # (Auto) 0.1, Basophils # (Auto) 0.0, Immature Granulocyte # (Auto) 0.1 CALE LAUREANO MD Jul 04, 2020 11:48
[2020-07-04] MEDS: ACETAMINOPHEN 500 MG TAB (TYLENOL) PO SCH ×2 (13:52→22:49)
--- NOTE | 2020-07-04 22:24 | Anesthesia-Regional Post-Op ---
Regional Patient Condition Mental Status: Alert, Oriented x3 Circulation: Same as Pre-Op Headache: Absent Sensation: Full Recovery Motor Block: Absent Post Op Complications Complications None Follow Up Care/Instructions Patient Instructions None needed. Anesthesia/Patient Condition Patient is doing well, no complaints, stable vital signs, no apparent adverse anesthesia problems. No complications reported per nursing. DAVIAN DIAS CRNA Jul 04, 2020 22:24
[2020-07-05 02:52] VITALS: BP 120/62
[2020-07-05] MEDS: IBUPROFEN 600 MG (MOTRIN) TAB PO SCH ×2 (02:52→08:36)
[2020-07-05] MEDS ORDERED: IBUP-844 PO (08:09)
--- NOTE | 2020-07-05 08:10 | Discharge Summary ---
Discharge Inst-Women's Serv Depart Medications New, Converted or Re-Newed RX: Transmitted to Pharmacy Follow Up/Instructions Goal/Follow Up: [address] Laureano Activity Activity: Activity as Tolerated Driving Instructions: You May Drive NO SMOKING: NO SMOKING Nothing Inside Vagina: No Douching, No [place], No Tampons Diet Discharge Diet: No Restrictions Symptoms to Report to : Fever Over 101 Degrees F, Vaginal Bleeding Increase For Any Problems or Questions: Contact Your Physician CALE LAUREANO MD Jul 05, 2020 08:09
--- NOTE | 2020-07-05 08:12 | Discharge Summary ---
Diagnosis/Chief Complaint Date of Admission Jul 03, 2020 at 19:30 Date of Discharge Jul 05, 2020 Admission Diagnosis Admission Diagnosis Labor at 37 3/7 wga. Discharge Diagnosis Vaginal delivery at 37 4/7 wga. Problems/Diagnosis: (1) care following vaginal delivery Assessment & Plan: Unremarkable course. Bottlefeeding. Discharge Summary-OBS Procedures None. Discharge Physical Examination Allergies: Coded Allergies: No Known Drug Allergies (Unverified , 06/14/20) Vitals & I&Os Vital Sign - Last 12Hours Date Time Temp Pulse Resp B/P (MAP) Pulse Ox O2 Delivery O2 Flow Rate FiO2 07/05/20 02:52 37.0 81 18 120/62 (81) 98 Room Air General Appearance: Alert, Oriented X3 HEENT: Atraumatic Respiratory: Clear to Auscultation Cardiovascular: Regular Rate Abdominal: Other (fundus firm below umbilicus) Skin: No Rashes Neuro: Normal Gait Hospital Course Was the Problem List Reviewed?: Yes Uneventful. Discharge Instructions to patient/family Please see electronic discharge instructions given to patient. Discharge Medications Reviewed and agree with Discharge Medication list on patient's Discharge Instruction sheet Clinical Quality Measures DVT/VTE Risk/Contraindication: Risk Factor Score Per Nursin RFS Level Per Nursing on Admit: 1=Low/No VTE PPX CALE LAUREANO MD Jul 05, 2020 08:12
[2020-07-05 08:34] VITALS: BP 120/85
--- NOTE | 2020-07-05 08:34 | NUR ---
AM shift assessment completed and vital signs obtained, see interventions. Plan of care reviewed with patient. Patient verbalizes understanding and denies any current questions/concerns/needs at this time.
[2020-07-05] MEDS: DOCUSATE SODIUM 100 MG (COLACE) CAP PO SCH (08:36)
[2020-07-05] MEDS: ACETAMINOPHEN 500 MG TAB (TYLENOL) PO SCH (08:36)
--- NOTE | 2020-07-05 10:50 | NUR ---
Discharge instructions and medications reviewed with patient both written and verbally. Patient verbalizes understanding and questions answered.
--- NOTE | 2020-07-05 11:09 | NUR ---
Patient discharged at this time via wheelchair and accompanied down to awaiting private vehicle by this RN. No signs or symptoms of distress noted.
== END 2020-07-05 11:09 | disposition home or self-care (01) | DRG 807 ==
LOC: LDRP 19:14 → WSo 19:14 → LDRP 19:30
PROVIDERS: ADMIT Family Medicine; ATTEND Family Medicine
PROC: 10E0XZZ Delivery of Products of Conception, External Approach (ICD-10-PCS; principal; 2020-07-04)
DX: O99.824 Streptococcus B carrier state complicating childbirth (principal); Z37.0 Single live birth; Z3A.37 37 weeks gestation of pregnancy
CPT/HCPCS: 36415; 85025; 86850; 86900; 86901; 87635

== ENCOUNTER → 2021-09-14 | Outpatient (CLI) | payer MEDICAID ==
[~2021-09-14] MED LIST changes: +IBUP-844 PO; +PREN-8 PO
[2021-09-14 10:50] LABS: BASOPHILS % (AUTO) 1 % (0-10); EOSINOPHILS # (AUTO) 0.1 10^3/uL (0.0-0.3); EOSINOPHILS % (AUTO) 1 % (0-10); HEMATOCRIT 43 % (35-52); HEMOGLOBIN 14.2 g/dL (11.5-16.0); LYMPHOCYTES # (AUTO) 2.1 10^3/uL (1.0-4.0); LYMPHOCYTES % (AUTO) 34 % (12-44); MEAN CORPUSCULAR HEMOGLOBIN 27 pg (25-34); MEAN CORPUSCULAR HGB CONC 33 g/dL (32-36); MEAN CORPUSCULAR VOLUME 84 fL (80-99); MEAN PLATELET VOLUME 8.2 fL (9.0-12.2); MONOCYTES # (AUTO) 0.4 10^3/uL (0.0-1.0); MONOCYTES % (AUTO) 6 % (0-12); NEUTROPHILS # (AUTO) 3.6 10^3/uL (1.8-7.8); NEUTROPHILS % (AUTO) 58 % (42-75); PLATELET COUNT 282 10^3/uL (130-400); WHITE BLOOD COUNT 6.2 10^3/uL (4.3-11.0)
[2021-09-14 12:34] LABS: BAND NEUTROPHILS 0 %; BASOPHILS % (MANUAL) 0 %; EOSINOPHILS % (MANUAL) 2 %; LYMPHOCYTES % (MANUAL) 30 %; MONOCYTES % (MANUAL) 4 %; NEUTROPHILS % (MANUAL) 64 %
== END ==
LOC: LAB FS 10:08
PROVIDERS: ATTEND Family Medicine
DX: R42 Dizziness and giddiness (principal); F32.9 Major depressive disorder, single episode, unspecified; N83.209 Unspecified ovarian cyst, unspecified side
CPT/HCPCS: 36415; 84443; 85007; 85027

== ENCOUNTER → 2022-03-04 | Outpatient (CLI) | payer MEDICAID ==
[2022-03-04 15:08] LABS: FREE T4 (FREE THYROXINE) 0.85 NG/DL (0.70-1.48)
== END ==
LOC: LAB FS 11:01
PROVIDERS: ATTEND Registered Nurse Emergency
DX: F41.1 Generalized anxiety disorder (principal); R42 Dizziness and giddiness; R00.2 Palpitations
CPT/HCPCS: 36415; 84439; 84443

== ENCOUNTER → 2022-03-10 | Outpatient (CLI) | payer MEDICAID | LOC: CARD 13:30 | PROVIDERS: ATTEND Registered Nurse Emergency | DX: R00.2 Palpitations (principal) | CPT/HCPCS: 93225; 93226 ==